=== PATIENT | female | born 1990 | race Caucasian/White ===

== ENCOUNTER 2017-11-16 19:45 | Emergency (ER) | payer BC ==
[~2017-11-16] VITALS: Ht 162.6 cm; Wt 58.1 kg
[2017-11-16 19:45] VITALS: BP 108/57
--- NOTE | 2017-11-16 19:45 | NUR ---
PT BIBA TO ER BED 08
--- NOTE | 2017-11-16 19:45 | NUR ---
PATIENT PRESENTS TO ED WITH VAGINAL BLEEDING X1 DAY. PATIENT STATES SHE NOTED BLOOD ENOUGH TO FILL 1 PAD. PATIENT STATES LOWER BACK PAIN 6/10. PT DENIES N/V/D; SKIN IS PINK/WARM/DRY; AAOX4 WITH EVEN AND STEADY GAIT; LUNGS CLEAR BL; HR EVEN AND REGULAR; PT DENIES ANY FEVER, CP, SOB, OR COUGH AT THIS TIME; PATIENT STATES PAIN OF 6/10 AT THIS TIME; VSS; PATIENT POSITIONED FOR COMFORT; HOB ELEVATED; BEDRAILS UP X1; BED DOWN. ER MD MADE AWARE OF PT STATUS.
--- NOTE | 2017-11-16 23:21 | NUR ---
Patient discharged with v/s stable. Written and verbal after care instructions given and explained. Patient verbalized understanding. Ambulatory with steady gait. All questions addressed prior to discharge. Advised to follow up with PMD.
[2017-11-16 23:22] VITALS: BP 108/57
== END 2017-11-16 23:21 | disposition home or self-care (01) ==
LOC: MED 19:45
DX: O46.92 Antepartum hemorrhage, unspecified, second trimester (principal); J45.909 Unspecified asthma, uncomplicated; Z3A.18 18 weeks gestation of pregnancy
CPT/HCPCS: 81002; 81025; 99282

== ENCOUNTER 2020-04-06 09:52 | Emergency (ER) | payer BC ==
[~2020-04-06] VITALS: Ht 165.1 cm; Wt 57.6 kg
--- NOTE | 2020-04-06 09:52 | NUR ---
Patient BIBA BLS, transferred to bed 1. RN evaluating the patient at bedside.
[2020-04-06 09:57] VITALS: BP 133/88
--- NOTE | 2020-04-06 10:01 | NUR ---
BIBA from home with c/o abdominal pain since Monday, went to [facility] on Monday, COVID-19 negative. Pain 02/12. NKDA, PMH asthma as a child A, A, O x4, cooperative, VVS Resp even and unlabored, in NAD, connected to registered nurse cardiac, sinus rhythm Moving all exts w/o difficulty, HOB elevated Awaiting evaluation by MD, will continue to monitor
--- NOTE | 2020-04-06 10:02 | NUR ---
MD at bedside to evaluate patient
[2020-04-06] MEDS ORDERED: MORPHINE SULFATE 4 MG/ML SYR IVP ONE (10:15)
[2020-04-06] MEDS ORDERED: ONDANSETRON 4 MG/2 ML VIAL IVP ONE (10:15)
[2020-04-06 10:46] LABS: BASOPHILS % (AUTO) 0.3 % (0.0-2.0); EOSINOPHILS # (AUTO) 0.1 K/uL (0-0.4); EOSINOPHILS % (AUTO) 0.6 % (0.0-4.0); HEMATOCRIT 37.3 % (36-48); HEMOGLOBIN 12.3 g/dL (12.0-16.0); LYMPHOCYTES # (AUTO) 1.6 K/uL (2.5-16.5); LYMPHOCYTES % (AUTO) 19.3 % (20.5-51.1); MEAN CORPUSCULAR HEMOGLOBIN 28 pg (27-31); MEAN CORPUSCULAR HGB CONC 33 g/dL (33-37); MEAN CORPUSCULAR VOLUME 84.5 fL (80-94); MONOCYTES # (AUTO) 0.5 K/uL (0.8-1.0); MONOCYTES % (AUTO) 6.1 % (1.7-9.3); NEUTROPHILS # (AUTO) 6.2 K/uL (1.8-7.7); NEUTROPHILS % (AUTO) 73.7 % (42.2-75.2); PLATELET COUNT (AUTO) 212 K/uL (140-450); RED BLOOD CELL COUNT(AUTO) 4.41 MIL/uL (4.20-5.40); RED CELL DISTRIBUTION WIDTH 13.4 % (11.6-13.7); WHITE BLOOD COUNT (AUTO) 8.4 K/uL (4.8-10.8)
[2020-04-06 10:48] LABS: APPEARANCE,URINE CLEAR (CLEAR); BILIRUBIN,URINE NEGATIVE (NEGATIVE); BLOOD, URINE 3+ (NEGATIVE); COLOR,URINE YELLOW (YELLOW); LEUKOCYTE ESTERASE ,URINE NEGATIVE (NEGATIVE); NITRITE, URINE NEGATIVE (NEGATIVE); PH,URINE 7.5 (5.0-9.0); UGLUCOSE NEGATIVE (NEGATIVE)
[2020-04-06 10:54] LABS: WBC,URINE 0-5 /HPF (0-5)
[2020-04-06 11:05] LABS: ALBUMIN 3.6 g/dL (3.4-5.0); CARBON DIOXIDE 23.1 mmol/L (21-32); CREATININE 1.6 mg/dL (0.6-1.3); POTASSIUM 4.1 mmol/L (3.5-5.1); TOTAL BILIRUBIN 0.4 mg/dL (0.0-1.0)
--- NOTE | 2020-04-06 12:49 | NUR ---
Patient medically cleared for discharged with v/s stable by MD. Written and verbal after care instructions given and explained. Patient verbalized understanding. Ambulatory with steady gait to car. All questions addressed prior to discharge. Advised to follow up with PMD. IV d/c'd, manual presure held, bleeding controlled. ID band removed. Patient left with all belongings
[2020-04-06 12:51] VITALS: BP 106/68
== END 2020-04-06 12:49 | disposition home or self-care (01) ==
LOC: MED 09:52
DX: R10.84 Generalized abdominal pain (principal); R11.2 Nausea with vomiting, unspecified; J45.909 Unspecified asthma, uncomplicated
CPT/HCPCS: 36415; 74176; 80053; 81001; 83690; 84703; 85025; 96374; 96375; 99284; J2270; J2405